=== PATIENT | female | born 1970 | race Caucasian/White ===

== ENCOUNTER 2022-09-24 12:18 | Emergency (ER) | payer OTHER ==
[~2022-09-24] VITALS: Ht 175.2 cm; Wt 72.5 kg
[~2022-09-24 12:18] MED LIST: AMBIEN; CYMBALTA; MOBIC; PNT40TEC PO; PROM25SU10 PR; PROPRANOLOL; [UNRECOGNIZED DRUG - OTHER]
[2022-09-24] MEDS ORDERED: fentaNYL INJ 100 MCG/2 ML AMP IVP STA (12:32)
[2022-09-24 12:43] LABS: ALBUMIN 4.5 GM/DL (3.2-4.5); POTASSIUM 3.7 MMOL/L (3.6-5.0)
[2022-09-24 12:45] LABS: CALCIUM 9.2 MG/DL (8.5-10.1)
[2022-09-24] MEDS ORDERED: NS IV 1000 ML 1,000 ML IV SCH (12:45)
[2022-09-24 12:46] LABS: TOTAL PROTEIN 7.7 GM/DL (6.4-8.2)
[2022-09-24 12:47] LABS: BASOPHILS # (AUTO) 0.1 10^3/uL (0.0-0.1); BASOPHILS % (AUTO) 1 % (0-10); EOSINOPHILS # (AUTO) 0.1 10^3/uL (0.0-0.3); EOSINOPHILS % (AUTO) 1 % (0-10); HEMATOCRIT 41 % (35-52); LYMPHOCYTES # (AUTO) 2.5 10^3/uL (1.0-4.0); LYMPHOCYTES % (AUTO) 41 % (12-44); MEAN CORPUSCULAR HEMOGLOBIN 25 pg (25-34); MEAN CORPUSCULAR HGB CONC 32 g/dL (32-36); MEAN CORPUSCULAR VOLUME 79 fL (80-99); MEAN PLATELET VOLUME 11.7 fL (9.0-12.2); MONOCYTES # (AUTO) 0.7 10^3/uL (0.0-1.0); MONOCYTES % (AUTO) 11 % (0-12); NEUTROPHILS # (AUTO) 2.8 10^3/uL (1.8-7.8); NEUTROPHILS % (AUTO) 46 % (42-75); PLATELET COUNT 295 10^3/uL (130-400); WHITE BLOOD COUNT 6.2 10^3/uL (4.3-11.0)
[2022-09-24 12:48] LABS: BILIRUBIN,TOTAL 0.7 MG/DL (0.1-1.0)
[2022-09-24 12:49] LABS: CREATININE SERUM 0.83 MG/DL (0.60-1.30)
[2022-09-24] MEDS ORDERED: IOHEXOL 350 MG/ML 100 ML (OMNIPAQUE 350) VIAL IV ONE (13:00)
[2022-09-24] MEDS ORDERED: KETOROLAC 30 MG/ML VIAL IVP ONE (13:00)
[2022-09-24] MEDS ORDERED: ONDANSETRON 4 MG/2 ML (SDV) Z0FRAN IVP ONE (13:00)
[2022-09-24] MEDS ORDERED: HOLD METFORMIN - RECEIVED CONTRAST 20 ML VIAL IV SCH (13:00)
[2022-09-24] MEDS ORDERED: NS 100 ML (IVPB) BAG IV ONE (13:00)
--- NOTE | 2022-09-24 13:08 | ED GI ---
General Chief Complaint: Abdominal/GI Problems Stated Complaint: ABD PAIN Source of Information: Patient, Family Exam Limitations: No Limitations (KYUNG TAMEZ APRN) History of Present Illness Date Seen by Provider: Sep 24, 2022 Time Seen by Provider: 12:35 Initial Comments 52-year-old female presents with severe left lower quadrant abdominal pain starting approximately 1 hour prior to arrival. States she has a history of IBS, took her Linzess this morning and felt like she needed to have a bowel movement. Reports she had a small bowel movement. Due to pain, patient was unable to elaborate on her most recent normal bowel movement. Reports she also has a history of kidney stones, states the pain is now in her left flank and rating down to her left lower abdomen. She is unable to state this pain is similar to previous kidney stones. Denies fevers, dysuria. Reports nausea, but has not vomited due to lack of food. (KYUNG TAMEZ APRN) Allergies and Home Medications Allergies Coded Allergies: NKANo Known Allergies (Unverified Allergy, Mild, 01/01/09) Patient Home Medication List Home Medication List Reviewed: Yes (KYUNG TAMEZ APRN) Hydrocodone/Acetaminophen (Hydrocodone-Acetamin 5-325 mg) 5 Mg-325 Mg Tablet, 1 TAB PO Q4H PRN for PAIN-MODERATE (5-7) Prescribed by: Kyung Tamez on 09/24/22 145 Nitrofurantoin Monohyd/M-Cryst (Macrobid 100 mg Capsule) 100 Mg Capsule, 1 TAB PO BID Prescribed by: Kyung Tamez on 09/24/22 145 Ondansetron (Ondansetron Odt) 4 Mg Tab.rapdis, 4 MG SL Q6H PRN for NAUSEA/VOMITING Prescribed by: Kyung Tamez on 09/24/22 145 Pantoprazole Sodium (Protonix) 40 Mg Tablet.dr, 1 TAB PO DAILY Prescribed by: SIERRA VALENTINE on 01/07/11712 Promethazine Hcl (Phenergan Supp 25 Mg) 25 Mg/Supp.rect Supp.rect, 1 SUPP VA QID PRN Prescribed by: SIERRA VALENTINE on 01/07/11712 Tamsulosin HCl (Flomax) 0.4 Mg Cap, 0.4 MG PO DAILY Prescribed by: Kyung Tamez on 09/24/22 0969 [Propranolol] , (Reported) Entered as Reported by: AGUSTIN CASTRO on 10/14/102041 Review of Systems Review of Systems Constitutional: see HPI (KYUNG TAMEZ APRN) Past Pbaiipu-Aysyrg-Pkokck Hx Patient Social History Tobacco Use?: No Use of E-Cig and/or Vaping dev: No Substance use?: No Alcohol Use?: No Pt feels they are or have been: No (KYUNG TAMEZ APRN) Immunizations Up To Date Influenza Vaccine Up-to-Date: Yes; Up-to-Date First/Initial COVID19 Vaccinat: NO (KYUNG TAMEZ APRN) Past Medical History Surgery/Hospitalization HX: IBS, MIGRAINE, ACID REFLUX, PREDIABETIC, BREAST CA, SPINAL CORD TUMOR, MELANOMA POSTERIOR NECK, LEFT BREAST LUMPECTOMY. (KYUNG TAMEZ APRN) Physical Exam Vital Signs Vital Signs - First Documented 09/24/22 12:25 Temp 36.5 Pulse 69 Resp 18 B/P (MAP) 125/87 (100) Pulse Ox 100 O2 Delivery Room Air (LAURA DUCKWORTH MD) Vital Signs Capillary Refill : (KYUNG TAMEZ APRN) Height/Weight/BMI Height: '" Weight: lbs. oz. kg; BMI Method: General Appearance: severe distress Neck: full range of motion, normal inspection Respiratory: lungs clear, normal breath sounds, no respiratory distress, no accessory muscle use Cardiovascular: regular rate, rhythm, no edema, no gallop, no JVD, no murmur Gastrointestinal: normal bowel sounds, soft, no organomegaly, no pulsatile mass, tenderness (Left lower quadrant) Extremities: normal range of motion, normal inspection Neurologic/Psychiatric: alert, normal mood/affect, oriented x 3 Skin: normal color, warm/dry (KYUNG TAMEZ APRN) Progress/Results/Core Measures Results/Orders Lab Results Laboratory Tests Test 09/24/22 12:20 09/24/22 12:25 09/24/22 14:16 Range/Units Lab Scanned Report Referred Lab Report [id number] White Blood Count 6.2 4.3-11.0 10^3/uL Red Blood Count 5.13 H 3.80-5.11 10^6/uL Hemoglobin 13.0 11.5-16.0 g/dL Hematocrit 41 35-52 % Mean Corpuscular Volume 79 L 80-99 fL Mean Corpuscular Hemoglobin 25 25-34 pg Mean Corpuscular Hemoglobin Concent 32 32-36 g/dL Red Cell Distribution Width 13.1 10.0-14.5 % Platelet Count 295 130-400 10^3/uL Mean Platelet Volume 11.7 9.0-12.2 fL Immature Granulocyte % (Auto) 0 % Neutrophils (%) (Auto) 46 42-75 % Lymphocytes (%) (Auto) 41 12-44 % Monocytes (%) (Auto) 11 0-12 % Eosinophils (%) (Auto) 1 0-10 % Basophils (%) (Auto) 1 0-10 % Neutrophils # (Auto) 2.8 1.8-7.8 10^3/uL Lymphocytes # (Auto) 2.5 1.0-4.0 10^3/uL Monocytes # (Auto) 0.7 0.0-1.0 10^3/uL Eosinophils # (Auto) 0.1 0.0-0.3 10^3/uL Basophils # (Auto) 0.1 0.0-0.1 10^3/uL Immature Granulocyte # (Auto) 0.0 0.0-0.1 10^3/uL Sodium Level 139 135-145 MMOL/L Potassium Level 3.7 3.6-5.0 MMOL/L Chloride Level 104 98-107 MMOL/L Carbon Dioxide Level 22 21-32 MMOL/L Anion Gap 13 5-14 MMOL/L Blood Urea Nitrogen 13 7-18 MG/DL Creatinine 0.83 0.60-1.30 MG/DL Estimat Glomerular Filtration Rate 85 BUN/Creatinine Ratio 16 Glucose Level 116 H 70-105 MG/DL Calcium Level 9.2 8.5-10.1 MG/DL Corrected Calcium 8.8 8.5-10.1 MG/DL Total Bilirubin 0.7 0.1-1.0 MG/DL Aspartate Amino Transf (AST/SGOT) 16 5-34 U/L Alanine Aminotransferase (ALT/SGPT) 17 0-55 U/L Alkaline Phosphatase 63 40-136 U/L Total Protein 7.7 6.4-8.2 GM/DL Albumin 4.5 3.2-4.5 GM/DL Amylase Level 82 25-125 U/L Lipase 64 8-78 U/L Urine Color YELLOW Urine Clarity CLEAR Urine pH 7.5 5-9 Urine Specific [place] 1.010 L 1.016-1.022 Urine Protein NEGATIVE NEGATIVE Urine Glucose (UA) NEGATIVE NEGATIVE Urine Ketones 1+ H NEGATIVE Urine Nitrite NEGATIVE NEGATIVE Urine Bilirubin NEGATIVE NEGATIVE Urine Urobilinogen 0.2 < = 1.0 MG/DL Urine Leukocyte Esterase NEGATIVE NEGATIVE Urine RBC (Auto) 3+ H NEGATIVE Urine RBC 50-100 H /HPF Urine WBC RARE /HPF Urine Squamous Epithelial Cells 0-2 /HPF Urine Crystals PRESENT H /LPF Urine Calcium Oxalate Crystals RARE H /LPF Urine Amorphous Sediment RARE HAMLET PHOSPHATE H /LPF Urine Bacteria FEW H /HPF Urine Casts NONE /LPF Urine Mucus NEGATIVE /LPF Urine Culture Indicated YES (LAURA DUCKWORTH MD) Micro Results Microbiology 09/24/22 Urine Culture - Final, Complete NO GROWTH (LAURA DUCKWORTH MD) Vital Signs/I&O 09/24/22 09/24/22 12:25 15:10 Temp 36.5 36.0 Pulse 69 84 Resp 18 18 B/P (MAP) 125/87 (100) 123/78 Pulse Ox 100 98 O2 Delivery Room Air Room Air (LAURA DUCKWORTH MD) Progress Progress Note #1: Time: 12:45 Progress Note Patient seen and evaluated, severe distress due to pain, difficulty performing exam due to patient's inability to sit still due to pain. Based on her exam and symptoms, differential diagnosis includes but is not limited to, nep hrolithiasis, pyelonephritis, diverticulitis, constipation. Work-up initiated including CBC, CMP, amylase, lipase, CT abdomen pelvis with contrast. IV fluids and pain medication ordered. Progress Note #2: Time: 14:[address] and labs reviewed. CBC shows normal WBC 6.2, elevated RBC 5.13. CMP also normal, glucose slightly elevated 116, BUN normal 13, creatinine normal at 0.83, GFR normal 85. Waiting for UA result. CT shows multiple stones within both kidneys. Also shows 2 left ureteral kidney stones, largest is approximately 5 mm in size, moderate hydroureteronephrosis n oted. Patient requested to see a physician earlier in stay, Dr. Todd to bedside at this time. He wants to add on a KUB to be able to monitor movement of the stones if patient returns to the ED. Progress Note #3: Progress Note UA shows low specific gravity of 1.010, 1+ ketones, 3+ RBCs, crystals present, rare calcium oxalate crystals, rare amorphous sediment, and few bacteria. Will discharge with antibiotic due to size of kidney stone, flomax, zofran, and pain medication. Patient feeling better, agreeable to discharge plan. (KYUNG TAMEZ APRN) Diagnostic Imaging Diagonstic Imaging: CT Plain Films/CT/US/NM/MRI: abdomen, pelvis Comments [facility], [place] NAME: GABINO [facility] REC#: [id number] PT STATUS: REG ER : 1970 PHYSICIAN: KYUNG TAMEZ APRN ADMIT DATE: 09/24/22/ER Draft Date of Exam:09/24/22 CT ABDOMEN/PELVIS W PROCEDURE: CT abdomen and pelvis with contrast. TECHNIQUE: Multiple contiguous axial images were obtained through the abdomen and pelvis after administration of intravenous contrast. Auto Exposure Controls were utilized during the CT exam to meet ALARA standards for radiation dose reduction. All CT scans use one or more of the following dose optimizing techniques: automated exposure control, MA and/or KvP adjustment based on patient size and exam type or iterative reconstruction. INDICATION: Left lower quadrant pain with nausea and vomiting. COMPARISON: Correlation is made with prior CT from 10/18/2015. FINDINGS: Lung bases are clear. The liver is unremarkable. Gallbladder is unremarkable. There is no biliary ductal dilatation. Pancreas and spleen are unremarkable. No adrenal mass is detected. Both kidneys contain multiple nonobstructing calculi. There is moderate left-sided hydroureteronephrosis. The dilated left ureter is traced into the pelvis where there are two calculi within the distal left ureter just proximal to the UVJ. Largest and most distal calculus is 5 mm in size. No bladder calculi are seen. Aorta is nonaneurysmal. Bowel loops are normal in caliber. Appendix is unremarkable. There is no ascites. No inflammatory changes are seen. Uterus is unremarkable. IMPRESSION: 1. Bilateral nonobstructing nephrolithiasis. In addition, there are two distal left ureteric calculi just above the UVJ producing moderate hydroureteronephrosis. Dictated on workstation # [id number] Dict: 09/24/22 1357 Trans: 09/24/22 1403 [id number] Interpreted by: DEBRA LAZO MD Electronically signed by: Tristen Imaging: Xray Plain Films/CT/US/NM/MRI: abdomen Comments [facility], [place] NAME: GABINO COX [facility] REC#: [id number] PT STATUS: DEP ER : 1970 PHYSICIAN: KYUNG TAMEZ APRN ADMIT DATE: 09/24/22/ER Signed Date of Exam:09/24/22 ABDOMEN/KUB 1VIEW INDICATION: History of kidney stone. COMPARISON: CT from earlier the same day. FINDINGS: Two frontal radiographic views of the abdomen were obtained and show asymmetric moderate left-sided hydroureteronephrosis. There is suggestion of small filling defect within the lower left ureter at the UVJ. This is consistent with calculus seen on CT from earlier the same day. Small bowel loops are nondistended. There is no large collection of free intraperitoneal air. No unexpected radiopaque foreign bodies are seen. Osseous structures show no gross acute abnormality. IMPRESSION: Moderate left-sided hydroureteronephrosis secondary to distal left ureteral calculus. Dictated by: Dictated on workstation # [id number] (KYUNG TAMEZ APRN) Departure Impression Primary Impression: Left ureteral stone Disposition: 01 HOME, SELF-CARE Condition: Stable Departure-Patient Inst. Referrals: HAYDE LLANES MD (PCP/Family) Primary Care Physician Patient Instructions: Kidney Stones in Adults Add. Discharge Instructions: Call the urologist today to schedule a follow-up appointment within the next week. Strain your urine every time you urinate to collect the kidney stones. You may take the kidney stone to the urologist for testing. Take Flomax once daily. Take prescribed pain medication as needed, it may cause constipation, and fatigue. You may also take 800 mg of ibuprofen every 8 hours with food as needed for pain. Take Zofran as needed for nausea, it may cause constipation. Take antibiotic as directed, complete full course of antibiotic. Return for fever, uncontrolled vomiting, uncontrolled pain, inability to urinate, or any other new, concerning, or worsening symptoms. [facility] All discharge instructions reviewed with patient and/or family. Voiced understanding. Scripts Nitrofurantoin Monohyd/M-Cryst (Macrobid 100 mg Capsule) 100 Mg Capsule 1 TAB PO BID for 5 Days, #10 CAP 0 Refills Prov: KYUNG TAMEZ APRN 09/24/22 Hydrocodone/Acetaminophen (Hydrocodone-Acetamin 5-325 mg) 5 Mg-325 Mg Tablet 1 TAB PO Q4H PRN for PAIN-MODERATE (5-7), #20 TAB 0 Refills Prov: KYUNG TAMEZ APRN 09/24/22 Tamsulosin HCl (Flomax) 0.4 Mg Cap 0.4 MG PO DAILY, #14 CAP 0 Refills Prov: KYUNG TAMEZ APRN 09/24/22 Ondansetron (Ondansetron Odt) 4 Mg Tab.rapdis 4 MG SL Q6H PRN for NAUSEA/VOMITING, #20 TAB 0 Refills Prov: KYUNG TAMEZ APRN 09/24/22 ATTENDING PHYSICIAN NOTE: I was physically present as attending physician in the emergency department during the care of this patient. I briefly discussed the clinical presentation and results of work-up with Aaliyah Tamez NP. We discussed approach to care and appropriate medications. I briefly interviewed and examined the patient, and we discussed the results of her CT scan. I found the patient to be in no acute distress after treatment. She had mild flank and abdominal tenderness. Heart had regular rate and rhythm. Lungs were clear. Questions were answered. Patient's discharge and medications were managed by Kyung with my consultation. I was not otherwise involved in the decision making or delivery of care for this patient. (LAURA DUCKWORTH MD) Copy Copies To 1: HAYDE LLANES MD, BRITTANY R APRN Sep 24, 2022 13:08 LAURA DUCKWORTH MD Sep 28, 2022 11:57
[2022-09-24] MEDS ORDERED: PROMETHAZINE INJ 25 MG/ML (PHENERGAN) AMP ONE (13:41)
[2022-09-24] MEDS ORDERED: HYDROmorphone 2 MG/ML VIAL (DILAUDID) IV ONE (13:45)
[2022-09-24] MEDS ORDERED: PROMETHAZINE INJ 25 MG/ML (PHENERGAN) AMP IVP ONE (13:45)
--- NOTE | 2022-09-24 14:04 | Diagnostic Imaging Report ---
PROCEDURE: CT abdomen and pelvis with contrast. TECHNIQUE: Multiple contiguous axial images were obtained through the abdomen and pelvis after administration of intravenous contrast. Auto Exposure Controls were utilized during the CT exam to meet ALARA standards for radiation dose reduction. All CT scans use one or more of the following dose optimizing techniques: automated exposure control, MA and/or KvP adjustment based on patient size and exam type or iterative reconstruction. INDICATION: Left lower quadrant pain with nausea and vomiting. COMPARISON: Correlation is made with prior CT from 10/18/2015. FINDINGS: Lung bases are clear. The liver is unremarkable. Gallbladder is unremarkable. There is no biliary ductal dilatation. Pancreas and spleen are unremarkable. No adrenal mass is detected. Both kidneys contain multiple nonobstructing calculi. There is moderate left-sided hydroureteronephrosis. The dilated left ureter is traced into the pelvis where there are two calculi within the distal left ureter just proximal to the UVJ. Largest and most distal calculus is 5 mm in size. No bladder calculi are seen. Aorta is nonaneurysmal. Bowel loops are normal in caliber. Appendix is unremarkable. There is no ascites. No inflammatory changes are seen. Uterus is unremarkable. IMPRESSION: 1. Bilateral nonobstructing nephrolithiasis. In addition, there are two distal left ureteric calculi just above the UVJ producing moderate hydroureteronephrosis. Dictated by: Dictated on workstation # [id number]
[2022-09-24 14:25] LABS: BILIRUBIN,URINE NEGATIVE (NEGATIVE); CLARITY,URINE CLEAR; COLOR,URINE YELLOW; GLUCOSE, URINE (UA) NEGATIVE (NEGATIVE); KETONES,URINE 1+ (NEGATIVE); LEUKOCYTE ESTERASE ,URINE NEGATIVE (NEGATIVE); NITRITE,URINE NEGATIVE (NEGATIVE); PH,URINE 7.5 (5-9); PROTEIN,URINE NEGATIVE (NEGATIVE)
[2022-09-24 14:38] LABS: AMORPHOUS SEDIMENT,UR RARE AMOR PHOSPHATE /LPF; BACTERIA,URINE FEW /HPF; CALCIUM OXALATE CRYSTALS,UR RARE /LPF; RBC,URINE 50-100 /HPF; SQUAMOUS EPITHELIAL CELL,UR 0-2 /HPF; WBC,URINE RARE /HPF
--- NOTE | 2022-09-24 14:39 | Diagnostic Imaging Report ---
INDICATION: History of kidney stone. COMPARISON: CT from earlier the same day. FINDINGS: Two frontal radiographic views of the abdomen were obtained and show asymmetric moderate left-sided hydroureteronephrosis. There is suggestion of small filling defect within the lower left ureter at the UVJ. This is consistent with calculus seen on CT from earlier the same day. Small bowel loops are nondistended. There is no large collection of free intraperitoneal air. No unexpected radiopaque foreign bodies are seen. Osseous structures show no gross acute abnormality. IMPRESSION: Moderate left-sided hydroureteronephrosis secondary to distal left ureteral calculus. Dictated by: Dictated on workstation # [id number]
[2022-09-24] MEDS ORDERED: ACHD5005 PO (14:53)
[2022-09-24] MEDS ORDERED: NITR-65 PO (14:53)
[2022-09-24] MEDS ORDERED: TMSL.4C PO (14:53)
[2022-09-24] MEDS ORDERED: ONDA4TAB11 SL (14:53)
[2022-09-24 15:10] VITALS: BP 123/78
== END 2022-09-24 15:10 | disposition home or self-care (01) ==
LOC: EDUNIT# 12:18 → ER 12:20
DX: N13.2 Hydronephrosis with renal and ureteral calculous obstruction (principal); R73.9 Hyperglycemia, unspecified; R71.8 Other abnormality of red blood cells; Z87.19 Personal history of other diseases of the digestive system; Z28.310 Unvaccinated for COVID-19
CPT/HCPCS: 36415; 74018; 74177; 80053; 81000; 82150; 83690; 85025; 87088